=== PATIENT | female | born 1985 | race Caucasian/White ===

== ENCOUNTER → 2019-05-27 | Outpatient (CLI) | payer OTHER ==
--- NOTE | 2019-05-27 15:15 | RAD ---
SHOULDER 2+V RIGHT, ELBOW RIGHT 3V Clinical Indication: Fall, pain. Comparison: None. Findings: There is no acute fracture or dislocation of the elbow. The mineralization is normal. No evidence of joint effusion. There is no radiopaque foreign body. The soft tissues are normal. There is no acute fracture or dislocation of the shoulder. The acromioclavicular and glenohumeral joints are intact. The visualized upper lung is clear. Question mild right basilar atelectasis. There is no evidence of a displaced rib fracture. There is no soft tissue abnormality. IMPRESSION: No acute fracture or dislocation of the elbow or shoulder. Electronically signed by: Joao Posadas MD (05/27/2019 3:12 PM) [id number]
--- NOTE | 2019-05-27 15:32 | RAD ---
MANDIBLE COMPLETE 4+V Clinical Indication: Fall, pain. Comparison: None. Findings: No acute fracture of the mandible. Dentition unremarkable. No obvious opacity of the paranasal sinuses or mastoid air cells. Cervical spine alignment appears maintained. The temporomandibular joints appear intact. There is indeterminate well-circumscribed sclerotic density of the left of midline calvarium near the convexity measuring approximately 3.3 cm. Assuming patient does not have a history of cancer, finding is probably incidental. IMPRESSION: No acute mandible fracture. Electronically signed by: Joao Posadas MD (05/27/2019 3:29 PM) [id number]
--- NOTE | 2019-05-27 15:34 | RAD ---
RIGHT HIP AP AND LATERAL Clinical Indication: Fall, pain. Comparison: None. Findings: There is no acute fracture or dislocation. The hip joint articulation is normal. The mineralization is normal. Visualized pelvic bones are intact. There is no soft tissue abnormality or radiopaque foreign body. IMPRESSION: No acute fracture or dislocation. Electronically signed by: Joao Posadas MD (05/27/2019 3:31 PM) [id number]
== END | disposition home or self-care (01) ==
LOC: RAD 14:21
PROVIDERS: ATTEND Family Medicine
DX: M25.521 Pain in right elbow (principal); M25.511 Pain in right shoulder; Y92.89 Other specified places as the place of occurrence of the external cause; Y93.89 Activity, other specified; W00.1XXA Fall from stairs and steps due to ice and snow, initial encounter; Y99.8 Other external cause status
CPT/HCPCS: 70110; 73030; 73080; 73502